=== PATIENT | female | born 1950 | race Caucasian/White ===

== ENCOUNTER 2023-04-09 07:53 | Outpatient (CLI) | payer OTHER, SELFPAY ==
--- NOTE | ~2023-04-09 | US_ITS ---
EXAMINATION: US thyroid DATE: 04/09/2023 08:18 INDICATION: Nontoxic goiter, unspecified. TECHNIQUE: Multiple ultrasound images of the thyroid were obtained. COMPARISON: None. FINDINGS: The right thyroid lobe measures 5.3 x 1.4 x 1.5 cm. The left thyroid lobe measures 3.9 x 1.1 x 1.3 c m. There is normal echotexture and echogenicity throughout the thyroid gland. No discrete nodules id entified. Normal vascular flow is present. IMPRESSION: 1. Normal thyroid. Reviewed, dictated and finalized at location A. ERCIAL ILLUSTRATOR IMPRESSION: 1. Normal thyroid.
== END 2023-04-09 07:54 | disposition home or self-care (01) ==
LOC: ANHIMG 07:57
PROVIDERS: Visit Provider Internal Medicine Endocrinology, Diabetes & Metabolism
DX: E04.9 Nontoxic goiter, unspecified (principal)
CPT/HCPCS: 36415; 76536; 84439; 84443

== ENCOUNTER 2023-04-09 08:19 | Outpatient (CLI) | payer OTHER, SELFPAY | END 2023-04-09 08:20 | disposition home or self-care (01) | LOC: ANHWCLAB 08:19 | PROVIDERS: Visit Provider Internal Medicine Endocrinology, Diabetes & Metabolism | DX: E04.9 Nontoxic goiter, unspecified (principal) | CPT/HCPCS: 36415; 84439; 84443 ==